=== PATIENT | male | born 1990 | race Two or more races ===

== ENCOUNTER 2018-08-16 03:39 | Emergency (ER) | payer OTHER ==
[2018-08-16] MEDS ORDERED: Diazepam 5 MG Tab PO ONE (03:43)
--- NOTE | 2018-08-16 04:08 | EDM.PDOC ---
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 Pain is in middle back. No radiation. No numbness/tingling/ weakness. No bowel/bladder changes. No other pain complaints. Past medical history unremarkable. No prior episodes of similar back pain/injuries. mid-back Pain Score (Numeric/FACES): 10 - Related Data Allergies Allergy/AdvReac Type Severity Reaction Status Date / Time No Known Allergies Allergy Verified 08/16/18 03:41 Home Meds: Home Meds Cyclobenzaprine [Flexeril] 10 mg PO TID PRN #15 tab 08/16/18 [Rx] traMADol [Ultram] 50 mg PO Q6H PRN #15 tab 08/16/18 [Rx] Past Medical History - Past Health History Medical/Surgical History: Denies Medical/Surgical History Social & Family History - Tobacco Use Smoking Status *Q: Current Some Day Smoker (rare. only when drinking with friends in past) - Alcohol Use Alcohol Use Frequency: Rarely ED ROS GENERAL - Review of Systems Review Of Systems: ROS reveals no pertinent complaints other than HPI. ED EXAM, GENERAL - Physical Exam Exam: See Below Exam Limited By: Physical Impairment (back pain) General Appearance: Alert, WD/WN, Moderate Distress Eye Exam: Bilateral Eye: EOMI, PERRL Ears: Normal External Exam, Normal Canal Nose: No: Nasal Deformity, Nasal Swelling, Nasal Drainage Throat/Mouth: Normal Inspection, Normal Lips, Normal Voice, No Airway Compromise Head: Atraumatic, Normocephalic Neck: Supple, Non-Tender, Full Range of Motion Respiratory/Chest: No Respiratory Distress, Lungs Clear, Normal Breath Sounds, No Accessory Muscle Use, Chest Non-Tender Cardiovascular: Normal Peripheral Pulses, Regular Rate, Rhythm, No Edema, No Murmur Peripheral Pulses: 2+: Radial (L), Radial (R) GI/Abdominal: Normal Bowel Sounds, Soft, Non-Tender, No Distention, No Mass (Male) Exam: Deferred Rectal (Males) Exam: Deferred Back Exam: Decreased Range of Motion, Paraspinal Tenderness (thoracic spine), Vertebral Tenderness (thoracic spine), Other (Patient laying with pillows under legs, having periodic spasms of pain. Avoids movement. ) Extremities: Normal Capillary Refill Neurological: Alert, Oriented, Normal Cognition, Normal Reflexes, No Motor/ Sensory Deficits, Other (unable to test gait due to pain/back spasms) Psychiatric: Anxious Skin Exam: Warm, Dry, Intact, Normal Color Course - Vital Signs Last Recorded V/S: Last Vital Signs Temp 36.4 C 08/16/18 03:40 Pulse 64 08/16/18 03:40 Resp 16 08/16/18 03:40 BP 130/80 08/16/18 03:40 Pulse Ox 99 08/16/18 03:40 - Orders/Labs/Meds Orders: Active Orders 24 hr Category Date Time Status Peripheral IV Care [RC] . DIRECTED Care 08/16/18 04:23 Active Thoracic Spine wo Cont [CT] Stat Exams 08/16/18 04:20 Taken Sodium Chloride 0.9% [Saline Flush] Med 08/16/18 04:23 Active 10 ml FLUSH ASDIRECTED PRN Peripheral IV Insertion Adult [OM.PC] Routine Oth 08/16/18 04:23 Ordered Medication Orders Sodium Chloride (Saline Flush) 10 ml FLUSH ASDIRECTED PRN PRN Reason: Keep Vein Open Labs: Laboratory Tests 08/16/18 08/16/18 Range/Units 05:05 05:05 WBC 6.2 (4.0-10.2) K/uL RBC 5.18 (4.33-5.41) M/uL Hgb 15.5 (13.1-16.8) g/dL Hct 43.5 (39.0-49.0) % MCV 84.0 (84.0-98.0) fL MCH 29.9 (28.2-33.3) pg MCHC 35.6 (31.7-36.0) g/dL RDW 12.8 (11.2-14.1) % Plt Count 184 (150-350) K/uL Neut % (Auto) 56.0 (45.0-80.0) % Lymph % (Auto) 31.6 (10.0-50.0) % Louisa % (Auto) 8.7 (2.0-14.0) % Eos % (Auto) 3.4 (0.0-5.0) % Baso % (Auto) 0.3 (0.0-2.0) % Neut # (Auto) 3.50 (1.40-7.00) K/uL Lymph # (Auto) 1.97 (0.50-3.50) K/uL Louisa # (Auto) 0.54 (0.00-1.00) K/uL Eos # (Auto) 0.21 (0.00-0.50) K/uL Baso # (Auto) 0.02 (0.00-0.20) K/uL Sodium 141 (136-145) mmol/L Potassium 3.9 (3.5-5.1) mmol/L Chloride 103 (98-107) mmol/L Carbon Dioxide 26.1 (21.0-32.0) mmol/L BUN 10 (7-18) mg/dL Creatinine 1.04 (0.51-1.17) mg/dL Est Cr Clr Drug Dosing 111.62 mL/min Estimated GFR (MDRD) > 60 mL/min Glucose 98 (74-106) mg/dL Calcium 8.6 (8.5-10.1) mg/dL Meds: Medications Generic Name Dose Route Start Last Admin Trade Name Freq PRN Reason Stop Dose Admin Sodium Chloride 10 ml 08/16/18 04:23 Saline Flush FLUSH ASDIRECTED PRN Keep Vein Open Discontinued Medications Generic Name Dose Route Start Last Admin Trade Name Freq PRN Reason Stop Dose Admin Diazepam 5 mg 08/16/18 03:43 08/16/18 03:49 Valium. PO 08/16/18 03:44 5 mg ONETIME ONE Administration Diazepam 5 mg 08/16/18 04:17 08/16/18 05:37 Valium IV 08/16/18 04:18 Not Given ONETIME ONE Fentanyl 100 mcg 08/16/18 05:00 Sublimaze IVPUSH 08/16/18 05:01 ONETIME ONE Ketorolac Tromethamine 30 mg 08/16/18 04:17 08/16/18 04:22 Toradol IVPUSH 08/16/18 04:18 30 mg ONETIME ONE Administration Methylprednisolone Sodium Succinate 40 mg 08/16/18 04:17 08/16/18 04:22 Solu-Medrol IVPUSH 08/16/18 04:18 40 mg ONETIME ONE Administration Ondansetron HCl 4 mg 08/16/18 04:17 Zofran IVPUSH 08/16/18 04:18 ONETIME ONE - Re-Assessments/Exams Free Text/Narrative Re-Assessment/Exam: 08/16/18 06:[address] study showed no acute spinal injuries. Suspect soft tissue/mechanical injury as cause of pain. Patient able to stand/walk and more comfortable by 0600. Plan at this time is to release him and he is aware that he is not to drive given that he received the Valium. Parvez was going to work on having patient's come get him. No work for the next few days. If further work restrictions are needed he is to follow up Tuesday morning. Flexeril and Tramadol prescribed. Precautions reviewed prior to discharge. Departure - Departure Time of Disposition: 06:13 Disposition: Home, Self-Care 01 Condition: Good Clinical Impression: Acute back pain Qualifiers: Back pain location: thoracic back pain Back pain laterality: midline Qualified Code(s): M54.6 - Pain in thoracic spine - Discharge Information *PRESCRIPTION DRUG MONITORING PROGRAM REVIEWED*: Not Applicable *COPY OF PRESCRIPTION DRUG MONITORING REPORT IN PATIENT SMILEY: Not Applicable Prescriptions: Cyclobenzaprine [Flexeril] 10 mg PO TID PRN #15 tab PRN Reason: Spasms traMADol [Ultram] 50 mg PO Q6H PRN #15 tab PRN Reason: Pain Instructions: Mid-Back Strain, Ketorolac injection, Methylprednisolone Solution for Injection Referrals: PCP,None [Primary Care Provider] - Forms: ED Department Discharge Additional Instructions: Home, rest, gentle activity such as walking only. OK to take Tylenol or ibuprofen or Aleve in addition to prescribed medications. Follow up for recheck as needed if pain returns or does not show further improvement within the next few days. Return to work Tuesday. Follow up at our hospital clinic or your local clinic as needed if further work restrictions are required. - My Orders Last 24 Hours: My Active Orders 08/16/18 04:20 Thoracic Spine wo Cont [CT] Stat 08/16/18 04:23 Peripheral IV Care [RC] . DIRECTED Sodium Chloride 0.9% [Saline Flush] 10 ml FLUSH ASDIRECTED PRN Peripheral IV Insertion Adult [OM.PC] Routine - Assessment/Plan Last 24 Hours: My Active Orders 08/16/18 04:20 Thoracic Spine wo Cont [CT] Stat 08/16/18 04:23 Peripheral IV Care [RC] . DIRECTED Sodium Chloride 0.9% [Saline Flush] 10 ml FLUSH ASDIRECTED PRN Peripheral IV Insertion Adult [OM.PC] Routine
[2018-08-16] MEDS ORDERED: Ondansetron 4 MG/2 ML SDV IVPUSH ONE (04:17)
[2018-08-16] MEDS ORDERED: methylPREDNISolone Sodium Succinate 40 MG/1 ML SDV IVPUSH ONE (04:17)
[2018-08-16] MEDS ORDERED: Ketorolac 30 MG/ML SDV IVPUSH ONE (04:17)
[2018-08-16] MEDS ORDERED: diazePAM 5 MG/ML MDV IV ONE (04:17)
[2018-08-16] MEDS ORDERED: Sodium Chloride 0.9% 10 ML Syringe FLUSH PRN (04:23)
[2018-08-16] MEDS ORDERED: fentaNYL 100 MCG/2 ML SDV IVPUSH ONE (05:00)
[2018-08-16 05:22] LABS: CHLORIDE,CL 103 mmol/L (98-107); SODIUM,NA 141 mmol/L (136-145)
== END 2018-08-16 06:20 | disposition home or self-care (01) ==
LOC: LL.ED 03:39
DX: M54.6 Pain in thoracic spine (principal)
CPT/HCPCS: 36415; 72128; 80048; 85025; 96374; 96375; 99284; A9270-GY; J1885; J2920